=== PATIENT | female | born 1955 | race Caucasian/White ===

== ENCOUNTER 2018-10-13 11:12 | Emergency (ER) | payer OTHER ==
[2018-10-13 12:02] LABS: ADD MAN DIFF? NO
[2018-10-13] MEDS: ONDANSETRON 4 MG INJ IV (12:02)
[2018-10-13] MEDS: SOD CHLORIDE 0.9% 1,000 ML IV (12:02)
[2018-10-13] MEDS: morphine 4 MG/ML VIAL IV (12:02)
[2018-10-13 12:22] LABS: BASOPHILS % 0.3 % (0.0-2.0); EOSINOPHILS # 0.1 10^3/ul (0.0-0.5); HEMATOCRIT 39.9 % (37.0-47.0); HEMOGLOBIN 13.3 g/dl (12.0-16.0); LYMPHOCYTES # 1.4 10^3/ul (0.8-2.9); MEAN CORPUSCULAR HEMOGLOBIN 29.6 pg (29.0-33.0); MEAN CORPUSCULAR HGB CONC 33.3 g/dl (32.0-37.0); MEAN CORPUSCULAR VOLUME 88.7 fl (82.0-101.0); MEAN PLATELET VOLUME 9.2 fl (7.4-10.4); MONOCYTE # 0.4 10^3/ul (0.3-0.9); MONOCYTES % 7.1 % (0.0-11.0); NEUTROPHIL # 3.9 10^3/ul (1.6-7.5); NEUTROPHILS % 67.3 % (39.0-77.0); PLATELET COUNT 238 10^3/UL (140-415); RED CELL DISTRIBUTION WIDTH 12.7 % (11.5-14.5)
[2018-10-13 12:22] LABS: WHITE BLOOD COUNT 5.7 10^3/ul (4.8-10.8)
[2018-10-13 12:26] LABS: ALANINE AMINOTRANSFERASE 17 IU/L (13-69); ALBUMIN 4.5 g/dl (3.3-4.9); ALBUMIN/GLOBULIN RATIO 1.21; ALKALINE PHOSPHATASE 84 IU/L (42-121); ANION GAP 10 (5-13); ASPARTATE AMINO TRANSFERASE 23 IU/L (15-46); BILIRUBIN,INDIRECT 0.5 mg/dl (0-1.1); BILIRUBIN,TOTAL 0.5 mg/dl (0.2-1.3); BLOOD UREA NITROGEN 13 mg/dl (7-20); CALCIUM 9.8 mg/dl (8.4-10.2); CARBON DIOXIDE 26 mmol/L (21-31); CHLORIDE 105 mmol/L (97-110); CREATININE 0.62 mg/dl (0.44-1.00); Estimated GFR > 60 mL/min (>60); GLUCOSE 97 mg/dl (70-220); LIPASE 61 U/L (23-300); SODIUM 141 mmol/L (135-144); TOTAL PROTEIN 8.2 g/dl (6.1-8.1)
[2018-10-13 12:41] LABS: ADD UMIC YES; UR ASCORBIC ACID NEGATIVE (NEGATIVE); UR BILIRUBIN (Dip) NEGATIVE (NEGATIVE); UR BLOOD (Dip) 1+ mg/dL (NEGATIVE); UR CLARITY CLEAR (CLEAR); UR COLOR YELLOW (YELLOW); UR GLUCOSE (Dip) NEGATIVE (NEGATIVE); UR KETONES (Dip) 1+ mg/dL (NEGATIVE); UR LEUKOCYTE ESTERASE (Dip) TRACE Leu/ul (NEGATIVE); UR MUCUS FEW /HPF (NONE SEEN); UR NITRITE (Dip) NEGATIVE (NEGATIVE); UR RBC 1 /HPF (0-5); UR SPECIFIC GRAVITY (Dip) 1.019 (1.003-1.030); UR SQUAMOUS EPITHELIAL CELL FEW /HPF (FEW); UR TOTAL PROTEIN (Dip) NEGATIVE (NEGATIVE); UR UROBILINOGEN (Dip) NEGATIVE (NEGATIVE); UR WBC 5 /HPF (0-5)
[2018-10-13] MEDS: CIPROFLOXACIN 500 MG TAB PO (14:31)
[2018-10-13] MEDS: metroNIDAZOLE 500 MG TAB PO (14:31)
== END 2018-10-13 14:53 | disposition home or self-care (01) ==
LOC: E/R 11:12
DX: K57.30 Diverticulosis of large intestine without perforation or abscess without bleeding (principal)
CPT/HCPCS: 36415; 74176; 80053; 81001; 83690; 85025; 96361; 96374; 96375; 99285-25

== ENCOUNTER 2018-10-20 06:44 | Day surgery (SDC) | payer OTHER ==
[2018-10-20] MEDS ORDERED: MIDAZOLAM 1 MG/ML 2 ML INJ ×2 (09:17)
[2018-10-20] MEDS ORDERED: FENTAnyl 50 MCG/ML VIAL (09:17)
== END 2018-10-20 10:58 | disposition home or self-care (01) ==
LOC: GIL 06:44
DX: Z12.11 Encounter for screening for malignant neoplasm of colon (principal); K64.8 Other hemorrhoids
CPT/HCPCS: 45378